=== PATIENT | female | born 1980 | race Caucasian/White ===

== ENCOUNTER → 2021-05-23 13:58 | Outpatient (CLI) | payer OTHER, SELFPAY ==
--- NOTE | 2021-05-23 14:00 | DI.MG.S_ITS ---
BILATERAL DIGITAL SCREENING MAMMOGRAM 3D/2D WITH CAD: 05/23/2021 CLINICAL: Routine screening. Baseline exam. No prior exams were available for comparison. The tissue of both breasts is heterogeneously dense. This may lower the sensitivity of mammography. Current study was also evaluated with a Computer Aided Detection (CAD) system. No significant masses, calcifications, or other findings are seen in either breast. IMPRESSION: NEGATIVE There is no mammographic evidence of malignancy. A 1 year screening mammogram is recommended. This exam was interpreted at Station ID: [id number]. NOTE: For mammograms, a report in lay terms will be sent to the patient. Approximately 15% of breast malignancies will not be visualized mammographically. In the management of a palpable breast mass, a negative mammogram must not discourage biopsy of a clinically suspicious lesion. Electronically Signed By: Teodoro levine/horacio:05/24/2021 21:50:04 letter sent: Normal Exam ACR BI-RADS Category 1: Negative 3341F
== END ==
PROVIDERS: PCP Family Medicine; Referring Provider Family Medicine; Visit Provider Family Medicine
DX: Z12.31 Encounter for screening mammogram for malignant neoplasm of breast (principal)
CPT/HCPCS: 77063; 77067

== ENCOUNTER → 2022-05-29 08:04 | Outpatient (CLI) | payer OTHER, SELFPAY ==
--- NOTE | 2022-05-29 08:08 | DI.MG.S_ITS ---
BILATERAL DIGITAL SCREENING MAMMOGRAM 3D/2D WITH CAD: 05/29/2022 CLINICAL: Routine screening. Comparison is made to exam dated: 05/23/2021 mammogram - [facility]. Both breasts are heterogeneously dense, which may obscure small masses (category c / 51-75% glandular tissue). Current study was also evaluated with a Computer Aided Detection (CAD) system. No significant masses, calcifications, or other findings are seen in either breast. There has been no significant interval change. IMPRESSION: NEGATIVE There is no mammographic evidence of malignancy. A 1 year screening mammogram is recommended. Based on the Tyrer Cuzick model (a risk assessment model) the patient's lifetime risk is 14.1% and her 10 year risk is 2.3%. According to the ACR, ACS, and NCCN guidelines, an annual breast MRI exam along with mammogram is recommended if the patient's lifetime risk is 20% or greater. This exam was interpreted at Station ID: [id number]. NOTE: For mammograms, a report in lay terms will be sent to the patient. Approximately 15% of breast malignancies will not be visualized mammographically. In the management of a palpable breast mass, a negative mammogram must not discourage biopsy of a clinically suspicious lesion. Electronically Signed By: Teodoro levine/horacio:05/31/2022 07:17:31 letter sent: Normal Exam ACR BI-RADS Category 1: Negative 3341F
== END ==
PROVIDERS: PCP Physician Assistant; Referring Provider Physician Assistant; Visit Provider Physician Assistant
DX: Z12.31 Encounter for screening mammogram for malignant neoplasm of breast (principal)
CPT/HCPCS: 77063; 77067

== ENCOUNTER → 2023-12-03 07:43 | Outpatient (CLI) | payer OTHER, SELFPAY ==
--- NOTE | 2023-12-03 | DI.MG.S_ITS ---
BILATERAL DIGITAL SCREENING MAMMOGRAM 3D/2D WITH CAD: 12/03/2023 CLINICAL: Routine screening. Comparison is made to exams dated: 05/29/2022 mammogram and 05/23/2021 mammogram - [facility]. Both breasts are extremely dense, which lowers the sensitivity of mammography (category d />75% glandular tissue). Current study was also evaluated with a Computer Aided Detection (CAD) system. There is a new 0.7 cm oval focal asymmetry in the right breast at 1 o'clock middle depth. No other significant masses, calcifications, or other findings are seen in either breast. IMPRESSION: INCOMPLETE: NEEDS ADDITIONAL IMAGING EVALUATION The new 0.7 cm oval focal asymmetry in the right breast resembles a cyst or a lymph node and is indeterminate. Additional views with possible ultrasound are recommended. Based on Tyrer-Cuzick model (a risk assessment model), the patient's lifetime risk is 20.7% and her 10 year risk is 3.7%. If a patient has an elevated risk, a more comprehensive evaluation should be considered and/or a referral to a genetic counselor. The [place] [employer], [employer], and NCCN Guidelines advise the consideration of Breast MRI as an adjunct to screening mammography in patients whose Lifetime risk to develop breast cancer is 20% or higher. This exam was interpreted at Station ID: [id number]. NOTE: For mammograms, a report in lay terms will be sent to the patient. Approximately 15% of breast malignancies will not be visualized mammographically. In the management of a palpable breast mass, a negative mammogram must not discourage biopsy of a clinically suspicious lesion. Electronically Signed By: Teodoro levine/horacio:12/05/2023 08:06:06 letter sent: Additional Imaging Needed ACR BI-RADS Category 0: Incomplete 3340F
== END ==
LOC: MAMMO 07:45
PROVIDERS: Referring Provider Physician Assistant; Visit Provider Physician Assistant
DX: Z12.31 Encounter for screening mammogram for malignant neoplasm of breast (principal); R92.343 Mammographic extreme density, bilateral breasts
CPT/HCPCS: 77063; 77067

== ENCOUNTER → 2024-01-03 11:58 | Outpatient (CLI) | payer OTHER, SELFPAY ==
--- NOTE | 2024-01-03 | DI.MG.S_ITS ---
UNILATERAL RIGHT DIGITAL DIAGNOSTIC MAMMOGRAM 3D/2D WITH ADDITIONAL VIEWS: 01/03/2024 CLINICAL: Additional evaluation requested from prior study. Comparison is made to exams dated: 12/03/2023 mammogram, 05/29/2022 mammogram, and 05/23/2021 mammogram - [facility]. The right breast is extremely dense, which lowers the sensitivity of mammography (category d />75% glandular tissue). There is a 0.7 cm oval focal asymmetry with an obscured margin in the right breast at 12 o'clock middle depth. This is less prominent. No other significant masses or calcifications are seen in the breast. IMPRESSION: INCOMPLETE: NEEDS ADDITIONAL IMAGING EVALUATION The 0.7 cm oval focal asymmetry in the right breast is indeterminate. An ultrasound is recommended. Based on Tyrer-Cuzick model (a risk assessment model), the patient's lifetime risk is 20.7% and her 10 year risk is 3.7%. If a patient has an elevated risk, a more comprehensive evaluation should be considered and/or a referral to a genetic counselor. The [place] [employer], [employer] [place] [employer], and NCCN Guidelines advise the consideration of Breast MRI as an adjunct to screening mammography in patients whose Lifetime risk to develop breast cancer is 20% or higher. This exam was interpreted at Station ID: [id number]. NOTE: For mammograms, a report in lay terms will be sent to the patient. Approximately 15% of breast malignancies will not be visualized mammographically. In the management of a palpable breast mass, a negative mammogram must not discourage biopsy of a clinically suspicious lesion. Electronically Signed By: Hakan navarro/horacio:01/03/2024 16:50:55 ACR BI-RADS Category 0: Incomplete 3340F
--- NOTE | 2024-01-03 | DI.US.S_ITS ---
LIMITED ULTRASOUND OF RIGHT BREAST: 01/03/2024 CLINICAL: Patient returns today to evaluate a focal asymmetry in the right breast. Comparison is made to exams dated: 01/03/2024 mammogram, 12/03/2023 mammogram, 05/29/2022 mammogram, and 05/23/2021 mammogram - [facility]. Color flow and real-time ultrasound of the right breast 11-1 o'clock region were performed. Estrella scale images of the real-time examination were reviewed. There are multiple benign simple cysts in the superior right breast. One of these likely correlates with the mammography findings. IMPRESSION: BENIGN There is no sonographic evidence of malignancy. The multiple simple cysts in the right breast are benign. Return to annual mammogram screening schedule is recommended. This exam was interpreted at Station ID: [id number]. Electronically Signed By: Hakan Bailey M.D. ar/:01/03/2024 16:52:39 letter sent: Normal Exam Ultrasound BI-RADS: 2 Benign
== END ==
PROVIDERS: Referring Provider Nurse Practitioner Family; Visit Provider Nurse Practitioner Family
DX: R92.8 Other abnormal and inconclusive findings on diagnostic imaging of breast (principal); N60.01 Solitary cyst of right breast; R92.341 Mammographic extreme density, right breast
CPT/HCPCS: 76642; 77065; G0279